=== PATIENT | male | born 1955 | race Caucasian/White ===

== ENCOUNTER → 2018-01-29 | Outpatient (CLI) | payer BC, MEDICARE, OTHER | LOC: COL.LAB 17:09 | DX: M25.471 Effusion, right ankle (principal) ==

== ENCOUNTER → 2018-01-30 | Outpatient (CLI) | payer SELFPAY | LOC: COL.RAD 14:35 | DX: M25.571 Pain in right ankle and joints of right foot (principal) ==

== ENCOUNTER → 2018-01-30 | Outpatient (CLI) | payer SELFPAY | LOC: COL.VAS 13:29 | DX: Z13.6 Encounter for screening for cardiovascular disorders (principal); M25.471 Effusion, right ankle; R79.89 Other specified abnormal findings of blood chemistry ==

== ENCOUNTER → 2018-06-10 | Outpatient (CLI) | payer OTHER | LOC: COL.RAD 12:28 | DX: R05 Cough (principal) ==

== ENCOUNTER 2018-06-23 06:31 | Inpatient (IN) | payer OTHER ==
[~2018-06-23] VITALS: Ht 167.6 cm; Wt 79.5 kg
[2018-06-23] MEDS ORDERED: TESSALON P100 MG/CAP PO (07:02)
[2018-06-23 07:19] LABS: COLLECTION METHOD CLEAN CATCH
[2018-06-23 07:25] LABS: MUCOUS Present /lpf; PH 6 (5-8); SQUAMOUS EPITHELIAL None Seen /hpf; URINE APPEARANCE Clear; URINE BACTERIA None Seen /hpf; URINE BILIRUBIN Negative (NEGATIVE); URINE BLOOD Negative (NEGATIVE); URINE COLOR Yellow; URINE GLUCOSE Negative (NEGATIVE); URINE KETONE Negative (NEGATIVE); URINE LEUKOCYTE ESTERASE Negative (NEGATIVE); URINE NITRATE Negative (NEGATIVE); URINE PROTEIN(semi-quant) Negative (NEGATIVE); URINE RBC 0-2 /hpf
[2018-06-23 07:26] LABS: BASO % 0.4 % (0.0-2.0); EOS # 0.2 (0.0-0.7); EOS % 3.1 % (0-4.0); GRAN # 4.6 (1.4-6.5); HEMOGLOBIN 13.2 g/dl (13.5-18.0); LYMPH # 1.6 (1.2-3.4); LYMPH % 22.5 % (20.0-51.0); MEAN CELL VOLUME 91 fl (80.0-100.0); MEAN CORPUSCULAR HEMOGLOBIN 30 pg (27.0-31.0); MEAN CORPUSCULAR HGB CONC 33 g/dl (33.0-37.0); MONO # 0.6 (0.1-0.6); MONO % 8.2 % (1.7-9.3); PLATELET COUNT 160 K/mm3 (130-400); RED BLOOD COUNT 4.39 M/mm3 (4.20-5.60); REDCELL DISTRIBUTION WIDTH-CV 13.9 % (11.5-14.5)
[2018-06-23 07:37] LABS: ALBUMIN 3.4 gm/dL (3.5-5.0); BILIRUBIN,TOTAL 0.6 mg/dL (0.0-1.0); CALCIUM 8.6 mg/dL (8.4-10.2); CREATININE, serum 1.03 mg/dL (0.66-1.25); POTASSIUM 3.9 mmol/L (3.4-5.0); TOTAL PROTEIN 6.1 gm/dL (6.4-8.2)
[2018-06-23 07:49] LABS: TROPONIN-I 0.067 ng/mL (0.000-0.035)
[2018-06-23 10:07] VITALS: BP 138/93; PULSE 65; TEMP 97
--- NOTE | 2018-06-23 11:00 | NUR ---
Patient admitted to room from ER. States he has no pain. Does have a cough but has improved since coming to the ER. Is independent with cares. Call light is within reach.
[2018-06-23 12:20] VITALS: BP 128/85; PULSE 75; TEMP 98.1
--- NOTE | 2018-06-23 15:42 | NUR ---
Received order for ECHO and bilateral lower venous duplex, informed radiology at this time.
--- NOTE | 2018-06-23 15:53 | NUR ---
SW recieved verbal consult from Dr. Bazzi about seeing patient for medication needs and insurance concerns. SW's visited with patient about his current statues. Patient reports that he resides in [place] alone and recieves early care home money. Patient indicated that he is unemployed and was told that he could not obtain a job due to his age. Patient indicated that he does not have any issurance or fund for insurance. Patient indicated that he recieves just enough to pay his bills. Paitnet repors that he walks and does not have transportation. PCP is reported as Dr. Grimes. Patient's preferred pharmacy is [facility]. Emergency contact is Leo his brother at . His cell is . Patient was educated on resources in the community. Educated patient about [facility] and [facility]. Action: COntacted Juliet with Finance to initiate help with medical coverage. Educated the client on a medication voucher and gave options of [facility] or [facility]. [facility] is closer. Educated up to 150.00 for voucher. indicated that medications for Cummodin and leviqin. Educated sw would be able to work on medications 06/24/18. May need a taxi voucher also. Please follow-up
--- NOTE | 2018-06-23 18:37 | NUR ---
Patient described quality of pain to right knee and leg. Patient stated she had an MRI last week showing that she had "no cartlidge" to the right knee, they then did an injection which has caused pain down the side of the right leg from the knee to the ankle. Pain is controlled well with her PRN pain medications.
--- NOTE | 2018-06-23 18:58 | NUR ---
Patient is resting in bed with head of bed elevated, watching TV. Assisted with ordering supper. Call light is within reach. Denies pain.
[2018-06-23 19:34] VITALS: BP 157/81; PULSE 50; TEMP 96.8
--- NOTE | 2018-06-23 19:45 | NUR ---
Patient sitting up in bed watching tv. Assessment completed, VSS. Patient reports of mild cough, given PRN tessalon pearles. Denies pain. Ambulatory, alert and oriented x4. IV site flushed and c/d/i. No further needs at this time.
[2018-06-23 23:46] VITALS: BP 139/82; PULSE 50; TEMP 98.2
[2018-06-24 03:32] VITALS: BP 142/82; PULSE 51; TEMP 97.9
--- NOTE | 2018-06-24 05:08 | NUR ---
Patient called nurse into room with c/o sharp pain in left side near lower ribe cage. This is the same pain that brought the patient into the ER yesterday. Pain lasting for 5 minutes that would not go away, so the patient called in this nurse. SANGEETHA Aguila notified as patient had no ordered pain medications. Ordered 1-2 tabs of NORCO and 0.5 mg dilaudid if NORCO does not relieve the pain.
--- NOTE | 2018-06-24 05:34 | NUR ---
Patient reports relief of pain with 1 tab of NORCO- states there is still some dull pain but that it is better than before. He will notify this nurse if pain worsens again or changes.
[2018-06-24 07:35] LABS: BASO % 0.5 % (0.0-2.0); EOS # 0.2 (0.0-0.7); EOS % 2.9 % (0-4.0); GRAN # 4.1 (1.4-6.5); GRAN % 70.1 % (42.2-75.2); HEMATOCRIT 39.8 % (42.0-52.0); HEMOGLOBIN 13.3 g/dl (13.5-18.0); LYMPH % 16.8 % (20.0-51.0); MEAN CELL VOLUME 91 fl (80.0-100.0); MEAN CORPUSCULAR HEMOGLOBIN 30 pg (27.0-31.0); MEAN CORPUSCULAR HGB CONC 33 g/dl (33.0-37.0); MEAN PLATELET VOLUME 9.7 fl (7.4-10.4); MONO # 0.5 (0.1-0.6); PLATELET COUNT 148 K/mm3 (130-400); RED BLOOD COUNT 4.38 M/mm3 (4.20-5.60)
--- NOTE | 2018-06-24 07:43 | NUR ---
Pt assessment complete. Pt is sitting up in bed watching tv upon entry, he is A/O x3. His breathing is even and unlabored on RA. Pt denies SOB at rest and exertion. Pt reports L sided thoracic pain 4/10, reports improving. POC discussed with patient who verbalizes understading. He denies further needs, call light within reach.
[2018-06-24 07:46] LABS: CALCIUM 8.8 mg/dL (8.4-10.2); CREATININE, serum 0.96 mg/dL (0.66-1.25); POTASSIUM 4.3 mmol/L (3.4-5.0)
[2018-06-24 08:09] VITALS: BP 129/74; PULSE 59; TEMP 97.8
--- NOTE | 2018-06-24 11:39 | NUR ---
First visit from the director of construction. No needs right now.
[2018-06-24 12:21] VITALS: BP 147/77; PULSE 57; TEMP 98.3
[2018-06-24 16:50] VITALS: BP 154/85; PULSE 64; TEMP 97.5
[2018-06-24 18:58] VITALS: BP 147/84; PULSE 54; TEMP 97.8
--- NOTE | 2018-06-24 19:02 | NUR ---
Pt had uneventful day, denied increased pain. PRN Tessalon pearles administered for intermittent cough. POC discussed with patient who verbalizes understanding. VSS. Report given to ORLANDO Burdick.
--- NOTE | 2018-06-24 19:46 | NUR ---
PT resting in bed. no pain. no soa. reports no bm since sunday. pt c/o cough, prn meds given. shift assessment complete. no needs at this time.c all light in reach
[2018-06-24 22:48] VITALS: BP 119/77; PULSE 57; TEMP 98.8
[2018-06-25 03:20] VITALS: BP 131/73; PULSE 51; TEMP 98.7
--- NOTE | 2018-06-25 05:25 | NUR ---
pt had an uneventful night. no pain. no soa. slept most of the night. call light in reach
[2018-06-25 06:18] LABS: BASO % 0.5 % (0.0-2.0); EOS # 0.2 (0.0-0.7); EOS % 3.3 % (0-4.0); GRAN # 4.5 (1.4-6.5); GRAN % 72.1 % (42.2-75.2); HEMATOCRIT 41.8 % (42.0-52.0); HEMOGLOBIN 13.9 g/dl (13.5-18.0); LYMPH # 0.9 (1.2-3.4); LYMPH % 13.9 % (20.0-51.0); MEAN CELL VOLUME 91 fl (80.0-100.0); MEAN CORPUSCULAR HEMOGLOBIN 30 pg (27.0-31.0); MEAN CORPUSCULAR HGB CONC 33 g/dl (33.0-37.0); MEAN PLATELET VOLUME 10.5 fl (7.4-10.4); MONO # 0.6 (0.1-0.6); MONO % 9.6 % (1.7-9.3); PLATELET COUNT 170 K/mm3 (130-400); RED BLOOD COUNT 4.61 M/mm3 (4.20-5.60); REDCELL DISTRIBUTION WIDTH-CV 13.8 % (11.5-14.5)
[2018-06-25 06:29] LABS: CALCIUM 9.1 mg/dL (8.4-10.2); CREATININE, serum 0.94 mg/dL (0.66-1.25); POTASSIUM 4.4 mmol/L (3.4-5.0)
[2018-06-25 06:30] LABS: INR 1.2 (0.8-3.0); PROTHROMBIN TIME 13.3 SECONDS (9.7-12.8)
--- NOTE | 2018-06-25 07:14 | NUR ---
report given to ORLANDO Finch. pt denied needs at this time
[2018-06-25 07:24] VITALS: BP 132/87; PULSE 58; TEMP 98
--- NOTE | 2018-06-25 08:09 | NUR ---
Assessment complete.patient awake,a/ox3.denies pain or discomfort at this time.reports intermittent cough.states its getting better.teds hose on.Lovenox given.breathing even and unlabored.patient on RA.patient denies any needs at this time.will continue to monitor.call light in reach
[2018-06-25 10:56] VITALS: BP 137/79; PULSE 58; TEMP 97.8
--- NOTE | 2018-06-25 12:20 | NUR ---
Dr. Nielson and team rounding on pt at this time.patient to discharge with retirement antibiotics.no needs voiced at this time.call light in reach
[2018-06-25] MEDS ORDERED: LOVENOX 8080 MG/0.8 SQ ×2 (12:22)
[2018-06-25] MEDS ORDERED: COUMADIN 5MG5 MG/TAB PO ×2 (12:22→12:30)
[2018-06-25] MEDS ORDERED: LOVENOX120 MG/0.8 SQ (12:31)
--- NOTE | 2018-06-25 16:28 | NUR ---
PATIENT DISCAHRGE HOME AT THIS TIME.ALL DISCHARGE INSTRUCTIONS DISCUSSED.ALL PAPERWORK.EDUCATION PROVIDED ON MEDS AND LOVENOX APPLICATION.PATIENT VOICED UNDERSTANDING.IV AND TELE DICONTINUED.PATIENT TOOK ALL BELONGINGS.
== END 2018-06-25 16:31 | disposition home or self-care (01) | DRG 175 ==
LOC: COL.ER 06:31 → MEDICAL 09:29 → PEDS 09:29
PROVIDERS: Emergency Medicine; Physician Assistant; ADMIT Hospitalist
DX: I26.99 Other pulmonary embolism without acute cor pulmonale (principal); I21.4 Non-ST elevation (NSTEMI) myocardial infarction; I82.431 Acute embolism and thrombosis of right popliteal vein; J90 Pleural effusion, not elsewhere classified; D64.9 Anemia, unspecified
CPT/HCPCS: 99222-AI; 99231-AI; 99239; J1650; J7030; Q9967

== ENCOUNTER → 2019-07-10 | Outpatient (CLI) | payer SELFPAY ==
[~2019-07-10] MED LIST: COUMADIN 5MG5 MG/TAB PO; LOVENOX 8080 MG/0.8 SQ; LOVENOX120 MG/0.8 SQ; TESSALON P100 MG/CAP PO
[2019-07-10 11:45] LABS: PROTHROMBIN TIME 24.1 SECONDS (9.7-12.8)
== END ==
LOC: COL.LAB 11:09
PROVIDERS: Family Medicine
DX: I26.99 Other pulmonary embolism without acute cor pulmonale (principal)

== ENCOUNTER 2022-01-16 15:03 | Emergency (ER) | payer SELFPAY ==
[~2022-01-16] VITALS: Ht 167.6 cm; Wt 79.5 kg
[2022-01-16 15:14] VITALS: TEMP 99.3
[2022-01-16 15:37] LABS: EOS % 0.3 % (0.0-4.0); GRAN # 2.2 K/mm3 (1.4-6.5); GRAN % 76.5 % (42.2-75.2); HEMATOCRIT 39.1 % (42.0-52.0); HEMOGLOBIN 13.5 g/dl (13.5-18.0); LYMPH # 0.3 K/mm3 (1.2-3.4); LYMPH % 10.6 % (20.0-51.0); MEAN CELL VOLUME 88 fl (80.0-100.0); MEAN CORPUSCULAR HEMOGLOBIN 30 pg (27-31); MEAN CORPUSCULAR HGB CONC 35 g/dl (33.0-37.0); MEAN PLATELET VOLUME 9.5 fl (7.4-10.4); MONO # 0.3 K/mm3 (0.1-0.6); MONO % 10.6 % (1.7-9.3); PLATELET COUNT 172 K/mm3 (130-400); RED BLOOD COUNT 4.44 M/mm3 (4.20-5.60); REDCELL DISTRIBUTION WIDTH-CV 13.5 % (11.5-14.5)
[2022-01-16 15:54] LABS: ALBUMIN 3.8 gm/dL (3.4-4.8); BILIRUBIN,TOTAL 0.8 mg/dL (0.2-1.2); CALCIUM 8.6 mg/dL (8.4-10.2); CREATININE, serum 1.24 mg/dL (0.72-1.25); INR 3.1 (0.8-3.0); POTASSIUM 3.9 mmol/L (3.5-4.5); PROTHROMBIN TIME 35.7 SECONDS (9.7-12.8); TOTAL PROTEIN 6.7 gm/dL (6.2-8.1)
[2022-01-16 17:14] LABS: COLLECTION METHOD CLEAN CATCH
[2022-01-16 17:24] LABS: PH 5.5 (5.0-8.5); URINE APPEARANCE Clear (CLEAR/HAZY); URINE COLOR Yellow (YELLOW); URINE GLUCOSE Negative (NEGATIVE); URINE KETONE Negative (NEGATIVE); URINE PROTEIN(semi-quant) Negative (NEGATIVE)
[2022-01-16 17:25] LABS: URINE BLOOD TRACE-INTACT (NEGATIVE); URINE NITRATE Negative (NEGATIVE)
[2022-01-16 17:30] LABS: MUCOUS Present (NOT PRESENT); URINE BACTERIA None Seen /hpf (NONE SEEN); URINE RBC 0-2 /hpf (0-2)
[2022-01-16 17:56] VITALS: BP 145/90; PULSE 93
== END 2022-01-16 17:56 | disposition home or self-care (01) ==
LOC: COL.ER 15:03
PROVIDERS: Emergency Medicine; Physician Assistant
DX: U07.1 COVID-19 (principal); S50.811A Abrasion of right forearm, initial encounter; S40.211A Abrasion of right shoulder, initial encounter; Z86.711 Personal history of pulmonary embolism; Z79.01 Long term (current) use of anticoagulants; W18.30XA Fall on same level, unspecified, initial encounter
CPT/HCPCS: Q0222